=== PATIENT | female | born 1950 | race Caucasian/White ===

== ENCOUNTER 2018-09-21 11:57 | Day surgery (SDC) | payer MEDICARE, BC, SELFPAY ==
[2018-09-21 13:00] VITALS: BP 112/73; PULSE 72; RESP 16; TEMP 36.3; O2SAT 100; BMI 21.2
[2018-09-21] MEDS: PROPARACAINE 0.5% OPHTH SOL 2 DROPS EYE-OP (13:00)
[2018-09-21] MEDS: CATARACT EYE COMPOUND (10 DROPS/SYRINGE) 3 DROPS EYE-OP (13:02)
--- NOTE | 2018-09-21 13:24 | PM.PREOP ---
Pre-operative Note Interval Note Changes: No
--- NOTE | 2018-09-21 13:25 | P.OP_ITS ---
Operative Date/Time/Diagnoses Pre-op diagnosis: Nuclear Cataract Left eye Post-op diagnosis: same Procedure & Clinicians Surgeon: Reynaldo Trinh Anesthesia Type: MAC +/- and Sedation Operative Notes Procedure in detail: Patient brought to the operating suite. Tetracaine drops placed in the left eye. Patient was prepped and draped in sterile manner. Wire lid speculum was placed in the eye. Betadine drops were placed on the eye. This was irrigated. Lidocaine jelly was placed on the eye. A paracentesis port was created with a side-port blade. 0.1 mL 1% preservative free lidocaine was injected into the anterior chamber. The anterior chamber was deepened with viscoelastic. 2.6 mm keratome was used to create a temporal clear corneal incision. Cystotome and Utrata forceps were used to create continuous tear capsulorrhexis. Balanced salt solution was used to hydro dissect the nucleus. The phacoemulsification handpiece was inserted and the nucleus was removed using the stop and chop technique. The irrigation aspiration handpiece was inserted and the remaining cortex was removed. Anterior chamber was deepened with viscoelastic. An Staley ZCB00 intraocular lens with a power of 16.5 was injected into the capsular bag. Irrigation aspiration handpiece was inserted and the remaining viscoelastic was removed. Incision was hydrated with balanced salt solution and found to be leak free with pressure with Weck- Betsy sponges. 0.1 mL Vigamox injected anterior chamber. 0.3 mL Kenalog 10 mg was injected subconjunctivally. Lid speculum was removed. The patient left the operating room in excellent condition. Complications: none Condition: stable Disposition: same day surgery
--- NOTE | 2018-09-21 13:25 | P.OP.PRE_ITS ---
Pre-operative Note Interval Note Changes: No
--- NOTE | 2018-09-21 13:42 | SUR.OPER ---
Supine on eye stretcher, head on extension cradle secured with tape. Arms tucked at sides with blanket. Pillow under knees.
[2018-09-21] MEDS: CHONDROIDTIN/SOD HYALURONATE 1.05 ML SYRINGE INTRAOCULA (13:44)
[2018-09-21] MEDS: MOXIFLOXACIN OPHTH DROPS 3 ML BOTTLE 2 DROPS INJ (13:44)
[2018-09-21] MEDS: LIDOCAINE JELLY 2% 5 ML 1 APPLIC TOP (13:44)
[2018-09-21] MEDS: PHENYLEPHRINE/LIDOCAINE VIAL (OR) 0.2 ML EYE-OP (13:45)
[2018-09-21] MEDS: TETRACAINE 0.5% OPHTH DROPS 15 ML 2 DROPS EYE-LEFT (13:45)
[2018-09-21] MEDS: TRIAMCINOLONE 50 MG/5 ML VIAL INJ (13:45)
[2018-09-21] MEDS: BALANCED SALT IRRIG SOLN NO.2 500 ML, EPINEPHrine 1 MG IRR (13:46)
[2018-09-21 14:10] VITALS: BP 150/98; PULSE 57; RESP 15; TEMP 36.2; O2SAT 96
--- NOTE | 2018-09-21 20:39 | SUR.PHASEII ---
1500 pt tolerated cake and coffee. ambulated to the bathroom, + void.
== END 2018-09-21 15:09 | disposition home or self-care (01) ==
PROVIDERS: PCP Family Medicine; Visit Provider Ophthalmology
DX: H25.12 Age-related nuclear cataract, left eye (principal); E11.9 Type 2 diabetes mellitus without complications; F41.9 Anxiety disorder, unspecified
CPT/HCPCS: J0171; J2250; J3010; J3301

== ENCOUNTER → 2019-07-22 10:32 | Outpatient (CLI) | payer MEDICARE, BC, SELFPAY ==
--- NOTE | 2019-07-22 | DI.RAD.S_ITS ---
PROCEDURE: FL BARIUM SWALLOW W SPEECH INDICATIONS: COUGH AFTER EATING TECHNIQUE: Examination was conducted in conjunction with speech pathology per standard protocol. In the lateral projection, filming was performed of the patient swallowing. AP projection filming may also be performed with patient swallowing. COMPARISON: None. FINDINGS: Function: The oral preparatory phase appears normal, with proper containment. The subsequent oral propulsive phase, pharyngeal phase, and esophageal phase of swallowing also appear normal with all proffered substances. No laryngotracheal penetration or aspiration. No pathologic vallecular pooling. Morphology: No cricopharyngeal bar is identified. No cervical esophageal webs. No Zenker's diverticulum. No strictures. IMPRESSION: No tracheal aspiration Dictated by: Richard Rodriguez M.D. on 07/22/2019 at 11:45 Approved by: Richard Rodriguez M.D. on 07/22/2019 at 11:46
--- NOTE | 2019-07-22 15:55 | ST.SWALLOW ---
Visit Care Team Role Provider Type Soco Leyv DO Attending Provider Non-Staff Primary Care Provider Specialty: Family Practice Address: [address] [place] [address], [phone] Email: Modified Barium Swallow Study FACILITY ENGINEER Modified Barium Swallow Study Start: 07/22/19 14:42 Freq: Status: Active Protocol: Document 07/22/19 14:42 LNK (Rec: 07/22/19 15:54 LNK [id number]) Modified Barium Swallow Study Total Time Visit Start Time 10:45 Visit Stop Time 11:15 Total Visit Minutes 30 Referral Referring Physician Soco Levy DO Reason for Referral couhg/choke with eating Setting Setting Outpatient Care Patient Information Identification Type Name,Date of Patient History Pt presented for a Modified Barium Swallow Study (MBSS) at the referral of her physician Dr. Levy. According to the pt she has a medical history that includes bowel obstruction in 2014, rhinitis and GERD. She takes medications for GERD and rhinitis and supplements with Beano ans Gas-Ex for her GERD. According to the pt she began to experience coughing and choking when eating about 3-4 years ago. She further reported that this has increased in frequency over the past 6 months to several times per week. She added that she has difficulty with swallowing large pills. She still has her tonsils and feels that her tongue is especially bumpy in the back . The pt did report that she will often choke on tepid liquids or foods; she prefers to drink either very hot oe very cold liquids to avoid choking. Subjective Observations Pt was seated in the fluoroscopy chair. The procedure as well as the directions for the MBSS were provided to the pt, who indicated that she understood. Patient Positioning Position View Lateral Imaging Lateral View Textures Administered Trials Presented Thin Liquid via Spoon,Thin Liquid via Cup,Pudding Thick Liquid via Spoon,Regular Textures,Barium Tablet Oral Phase Source: MBSIMP (TM) (C) Bolus Specific Scoring Grid Lip Closure WFL Tongue Control During Bolus Hold WFL Bolus Prep/Mastication WFL Bolus Transport/Lingual Motion Moderate Impairment A/P Lingual Propulsion Delay Yes: Bolus transport and A/P propulsion with tablet was difficult Number of Seconds Delayed (seconds) 3-5s with the barium tablet Oral Residue Minimal Impairment Nasal Regurgitation No Additional Oral Phase Observations informal observation of the OM structures was WFL. Natural dentition in good hygeine. Pt demonstrated difficulty with oral manipulation of the barium tablet. She described swallowing pills as being difficult at times, in that she cannot get them to move past her tongue. Suggest she take medication in a carrier such as pudding, yogurt, or applesauce. Pharyngeal Phase Source: MBSIMP (TM) (C) Bolus Specific Scoring Grid Delayed Initiation of Pharyngeal Swallow Yes: Bolus head to the valeculla and below epiglottis pre-swallow Number of Seconds Delayed (seconds) 1+ Soft Palate Elevation WFL Tongue Base Strength/Range of Motion Mild Impairment Residue Along the Tongue Base Yes Clearance of Residue Along Tongue Base Minimal Impairment Laryngeal Elevation Minimal Impairment Anterior Hyoid Movement Mild Impairment Epiglottic Range of Motion Minimal Impairment Vallecular Residue Yes: Residue cleared with subsequent swallow Clearance of Vallecular Residue Mild Impairment Laryngeal Vestibular Closure Minimal Impairment Pharyngeal Stripping Wave Minimal Impairment Posterior Pharyngeal Wall Residue No Upper Esophageal Sphincter Opening WFL Residue in the Pyriform Sinuses No Esophageal Clearance Upright Position WFL Pharyngoesophageal Backflow Observed No Additional Pharyngeal Phase Observations Hyolaryngeal elevation was adequate with mildly reduced hyoid movement forward. Osteophytes observed on cervical vertebrae which modified the bolus flow but did not impede the flow. Valeculla residue observed post-swallows, but was cleared with subsequent swallows. A cricopharyngeal bar was observed in usual position, but did not interfere with the bolus flow. A/P View Clinical Impressions Dysphagia Type Mild biju-pharyngeal Findings Pt demonstrated mild oropharyngeal dysphagia with difficulty with A/P propulsion of a barium tablet, valecullar pooling post- swallowing and a reported propensity of choking on tepid /luke warm solids and fluids. Osteophytes and a cricopharyngeal bar were observed; however there was no impedance of the bolus flow to the UES. Suspect that there is valecullar pooling during meals for the pt. If she does not swallow 2x/ bite and/or if she is taking large bites/ swallows of liquids, she may be experiencing overflow, which can cause choke/cough. Additionally, as she demonstrated premature spillage of the bolus head to and past the epiglottis, she may be triggering a cough/ choke response. Patient Appropriate for Therapy No: Discussion about swallowing 2x/bite and avoiding tepid temperature foods/liq Recommendations Diet Liquids Order Thin Diet Order Regular Medication Recommendation Whole in Carrier Aspiration Precautions Recommended Precautions Upright at 90 Degrees,Double Swallow Treatment Plan Recommended Referrals Primary Care Physician Compensatory Strategies Recommendations Sitting Upright (90 deg), Double Swallow
== END ==
PROVIDERS: PCP Family Medicine; Visit Provider Family Medicine
DX: R05 Cough (principal)
CPT/HCPCS: 74230; 92611

== ENCOUNTER → 2019-12-06 16:30 | Outpatient (CLI) | payer MEDICARE, BC, SELFPAY ==
--- NOTE | 2019-12-06 | DI.MG.S_ITS ---
BILATERAL DIGITAL SCREENING MAMMOGRAM 3D/2D WITH CAD: 12/06/2019 CLINICAL: Routine screening. Family history of breast cancer. Comparison is made to exams dated: 10/18/2015 mammogram, 11/10/2016 mammogram, and 11/19/2017 mammogram - [facility]. There are scattered fibroglandular elements in both breasts. Current study was also evaluated with a Computer Aided Detection (CAD) system. No significant masses, calcifications, or other findings are seen in either breast. There has been no significant interval change. IMPRESSION: NEGATIVE There is no mammographic evidence of malignancy. A 1 year screening mammogram is recommended. This exam was interpreted at Station ID: [id number]. NOTE: For mammograms, a report in lay terms will be sent to the patient. Approximately 15% of breast malignancies will not be visualized mammographically. In the management of a palpable breast mass, a negative mammogram must not discourage biopsy of a clinically suspicious lesion. Electronically Signed By: Roderick jarrett/jair:12/07/2019 08:32:11 letter sent: Normal Exam ACR BI-RADS Category 1: Negative 3341F
== END ==
PROVIDERS: PCP Family Medicine; Referring Provider Family Medicine; Visit Provider Family Medicine
DX: Z12.31 Encounter for screening mammogram for malignant neoplasm of breast (principal); Z80.3 Family history of malignant neoplasm of breast
CPT/HCPCS: 77063; 77067

== ENCOUNTER → 2020-12-15 14:42 | Outpatient (CLI) | payer MEDICARE, BC, SELFPAY ==
--- NOTE | 2020-12-15 14:44 | DI.MG.S_ITS ---
BILATERAL DIGITAL SCREENING MAMMOGRAM 3D/2D WITH CAD: 12/15/2020 CLINICAL: Routine screening. Family history of breast cancer. Comparison is made to exams dated: 12/06/2019 mammogram - [facility], 11/19/2017 mammogram, and 11/10/2016 mammogram - [facility]. There are scattered fibroglandular elements in both breasts. Current study was also evaluated with a Computer Aided Detection (CAD) system. No significant masses, calcifications, or other findings are seen in either breast. There has been no significant interval change. IMPRESSION: NEGATIVE There is no mammographic evidence of malignancy. A 1 year screening mammogram is recommended. This exam was interpreted at Station ID: [id number]. NOTE: For mammograms, a report in lay terms will be sent to the patient. Approximately 15% of breast malignancies will not be visualized mammographically. In the management of a palpable breast mass, a negative mammogram must not discourage biopsy of a clinically suspicious lesion. Electronically Signed By: Roderick jarrett/jair:12/17/2020 09:06:12 letter sent: Normal Exam ACR BI-RADS Category 1: Negative 3341F
== END ==
PROVIDERS: PCP Family Medicine; Referring Provider Family Medicine; Visit Provider Family Medicine
DX: Z12.31 Encounter for screening mammogram for malignant neoplasm of breast (principal); Z80.3 Family history of malignant neoplasm of breast
CPT/HCPCS: 77063; 77067

== ENCOUNTER → 2021-12-17 15:00 | Outpatient (CLI) | payer MEDICARE, BC, SELFPAY ==
--- NOTE | 2021-12-17 | DI.MG.S_ITS ---
BILATERAL DIGITAL SCREENING MAMMOGRAM 3D/2D WITH CAD: 12/17/2021 CLINICAL: Routine screening. Family history of breast cancer. Comparison is made to exams dated: 12/15/2020 mammogram, 12/06/2019 mammogram - [facility], 11/19/2017 mammogram, 11/10/2016 mammogram, and 10/18/2015 mammogram - [facility]. There are scattered fibroglandular elements in both breasts. Current study was also evaluated with a Computer Aided Detection (CAD) system. No significant masses, calcifications, or other findings are seen in either breast. There has been no significant interval change. IMPRESSION: NEGATIVE There is no mammographic evidence of malignancy. A 1 year screening mammogram is recommended. This exam was interpreted at Station ID: [id number]. NOTE: For mammograms, a report in lay terms will be sent to the patient. Approximately 15% of breast malignancies will not be visualized mammographically. In the management of a palpable breast mass, a negative mammogram must not discourage biopsy of a clinically suspicious lesion. Electronically Signed By: Ab gambino/jair:12/18/2021 08:56:39 letter sent: Normal Exam ACR BI-RADS Category 1: Negative 3341F
== END ==
PROVIDERS: PCP Family Medicine; Referring Provider Family Medicine; Visit Provider Family Medicine
DX: Z12.31 Encounter for screening mammogram for malignant neoplasm of breast (principal); Z80.3 Family history of malignant neoplasm of breast
CPT/HCPCS: 77063; 77067